=== PATIENT | female | born 1940 | race Caucasian/White ===

== ENCOUNTER 2016-09-06 18:50 | Emergency (ER) | payer OTHER, MEDICARE ==
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
== END 2016-09-06 18:52 | disposition expired ==
LOC: M ED 18:50
DX: S42.002A Fracture of unspecified part of left clavicle, initial encounter for closed fracture; S22.42XA Multiple fractures of ribs, left side, initial encounter for closed fracture; S01.00XA Unspecified open wound of scalp, initial encounter; V44.5XXA Car driver injured in collision with heavy transport vehicle or bus in traffic accident, initial encounter; Y92.410 Unspecified street and highway as the place of occurrence of the external cause; Y93.89 Activity, other specified; Y99.8 Other external cause status

== ENCOUNTER → 2016-09-07 | Outpatient (REF) ==
--- NOTE | 2016-09-07 15:17 | REP ---
PELVIS: AP view of the pelvis is performed. There is no evidence of fracture or dislocation. There are mild degenerative changes at the hips. The sacrum is not well seen due to overlying bowel gas. Signed by Juan Manuel Lee MD 09/07/2016 05:12 P
--- NOTE | 2016-09-07 15:24 | REP ---
SINGLE VIEW CHEST: Single view of the chest is performed. There is a fracture of the distal clavicle. I suspect a fracture of the proximal humerus. A few left rib fractures are noted. Mediastinum appears widened with displacement of the trachea to the right, possibly indicating mediastinal hematoma in this region. I do not see a pneumothorax. Signed by Juan Manuel Lee MD 09/07/2016 05:12 P
--- NOTE | 2016-09-07 15:26 | REP ---
CERVICAL SPINE: Three AP and lateral views of the cervical spine are performed. There is a burst fracture of the C4 vertebral body with displacement of fracture fragments. No fracture is seen of C2, C3 or C5. C6 and C7 are not visualized on the lateral views. Signed by Juan Manuel Lee MD 09/07/2016 05:12 P
--- NOTE | 2016-09-07 15:27 | REP ---
SKULL: AP and lateral views of the skull are performed. I see no evidence of skull fracture or bone lesion. Signed by Juan Manuel Lee MD 09/07/2016 05:12 P
== END ==
LOC: M LAB 08:23